=== PATIENT | male | born 1975 | race Caucasian/White ===

== ENCOUNTER 2018-09-06 21:07 | Emergency (ER) | payer OTHER ==
[~2018-09-06] VITALS: Ht 180.3 cm; Wt 72.6 kg
[2018-09-06] MEDS ORDERED: LAMICTAL (BLUE)25 MG PO (21:19)
[2018-09-06] MEDS ORDERED: NORCO 5-325 TA1 EACH PO (21:45)
[2018-09-06] MEDS ORDERED: IBUPROFEN 800800 MG PO (21:45)
[2018-09-06 22:00] VITALS: BP 115/73
== END 2018-09-06 22:00 | disposition home or self-care (01) ==
LOC: M.ERS 21:07
DX: M25.511 Pain in right shoulder (principal); Z88.0 Allergy status to penicillin; Z88.8 Allergy status to other drugs, medicaments and biological substances

== ENCOUNTER 2018-11-20 11:32 | Emergency (ER) | payer OTHER ==
[~2018-11-20] VITALS: Ht 180.3 cm; Wt 77.1 kg
[~2018-11-20 11:32] MED LIST: IBUPROFEN 800800 MG PO; LAMICTAL (BLUE)25 MG PO; NORCO 5-325 TA1 EACH PO
[2018-11-20] MEDS ORDERED: NORCO 5-325 TA1 EACH PO (12:31)
[2018-11-20] MEDS ORDERED: ONDANSETRON HCL4 M2 PO (12:31)
[2018-11-20] MEDS ORDERED: CLEOCIN HCL300 MG PO (12:31)
[2018-11-20] MEDS ORDERED: NAPROSYN500 MG PO (12:31)
[2018-11-20] MEDS ORDERED: CLEOCIN HCL150 MG PO (12:46)
[2018-11-20 12:58] VITALS: BP 121/71
== END 2018-11-20 13:00 | disposition home or self-care (01) ==
LOC: M.ERS 11:32
DX: S60.411A Abrasion of left index finger, initial encounter (principal); L08.89 Other specified local infections of the skin and subcutaneous tissue; L03.012 Cellulitis of left finger; F17.200 Nicotine dependence, unspecified, uncomplicated; Z88.8 Allergy status to other drugs, medicaments and biological substances; Z88.0 Allergy status to penicillin; Z88.6 Allergy status to analgesic agent; X58.XXXA Exposure to other specified factors, initial encounter; Y92.89 Other specified places as the place of occurrence of the external cause; Y93.89 Activity, other specified; Y99.8 Other external cause status

== ENCOUNTER 2019-01-20 18:32 | Inpatient (IN) | payer OTHER ==
[~2019-01-20] VITALS: Ht 180.3 cm; Wt 78.5 kg
[~2019-01-20 18:32] MED LIST changes: +CLEOCIN HCL150 MG PO; +CLEOCIN HCL300 MG PO; +NAPROSYN500 MG PO; +ONDANSETRON HCL4 M2 PO
[2019-01-20 18:37] VITALS: BP 121/58
[2019-01-20 19:05] LABS: ABSOLUTE BASOPHILS 0.1 thou/uL (0.0-0.2); ABSOLUTE EOSINOPHILS 0.4 thou/uL (0.0-0.7); ABSOLUTE LYMPHOCYTES 2.8 thou/uL (0.8-5.3); ABSOLUTE MONOCYTES 0.5 thou/uL (0.0-1.2); BASOPHILS 0.9 %; EOSINOPHILS 5.6 %; HEMATOCRIT 40.6 % (42.0-52.0); HEMOGLOBIN 13.7 gm/dL (14.0-18.0); LYMPHOCYTES 36.1 %; MCH 28.7 pg (26.0-34.0); MCHC 33.8 g/dL (28.0-37.0); MCV 84.9 fL (80.0-100.0); MONOCYTES 6.9 %; MPV 7.4 fl. (7.2-11.1); NUCLEATED RBCS 0 /100WBC; PLATELET COUNT* 195 thou/uL (150-400); POLYS 50.5 %; RBC 4.78 mil/uL (4.50-6.00); RDW-CV 14.8 % (10.5-14.5); WBC 7.9 thou/uL (4.0-11.0)
[2019-01-20 19:12] LABS: ANION GAP 8 mmol/L (7-16); BUN 13 mg/dL (7-18); CALCIUM 8.7 mg/dL (8.5-10.1); CHLORIDE 106 mmol/L (98-107); CO2 28 mmol/L (21-32); GLUCOSE 107 mg/dL (70-99); POTASSIUM 4.2 mmol/L (3.5-5.1); SODIUM 142 mmol/L (136-145)
[2019-01-20 19:23] LABS: ALBUMIN 3.7 g/dL (3.4-5.0); ALKALINE PHOSPHATASE 72 U/L (46-116); LIPASE 116 U/L (73-393); MAGNESIUM 2.1 mg/dL (1.8-2.4); NT-PRO BRAIN NAT PEPTIDE 18 pg/mL (<300); SGOT 17 U/L (15-37); SGPT 24 U/L (30-65); TOTAL BILIRUBIN 0.5 mg/dL (<0.1-1.0); TOTAL PROTEIN 6.9 g/dL (6.4-8.2); TROPONIN-I LEVEL <0.06 ng/mL (<0.06)
[2019-01-20 21:00] VITALS: BP 120/78
[2019-01-20 21:27] VITALS: BP 108/64
[2019-01-20] MEDS ORDERED: TRAMADOL 50 MG50 MG PO (21:48)
[2019-01-21 04:00] VITALS: BP 95/56
--- NOTE | 2019-01-21 06:50 | NUR ---
Pt admitted from ED for c/o chest pain. Topical NTG placed to chest in ED just prior to arrival to floor. Reports chest pressure easing from 6 in ED to 3 upon arrival. Later pt reports pain is "gone." Instructed to call if chest pain returns. States he slept on and off overnight. States he is hopeful that physicians will round early to determine course of action. NPO since MN. VSS. Will continue to monitor.
[2019-01-21 08:03] VITALS: BP 93/63
--- NOTE | 2019-01-21 09:58 | NUR ---
vss, assumed care in the am, ASSESSMENT PERFORMED AND CHARTED, FALL PRECAUTIONS IN PLACE AND CALL LIGHT IN REACH, PT IS A&O4 ON RA AND IS TRACING SR ON THE MONITOR, PT DENIES ANY PAIN AND HE WANTS TO DISCHARGE HOME, AT THIS TIME PT HAS REQUETED TO HAVE IV AND TELE MONITOR REMOVED AND HE WANTS TO GO HOME AMA, I PROVITED EDU ABOUT THE IMPORTANCE OF WAITING FOR DOCTOR OK TO LEAVE BUT PT WAS NOT WILLING TO WAIT, I CALL DR BENSON TO INFORM HIM. AMA PAPERS SINGED
--- NOTE | 2019-01-23 12:17 | EKG ---
[place] [address] ELECTROCARDIOGRAM REPORT Name: KRISTIE PANTOJA Room: [address] R.#: [id number] Admission: 01/20/19 Attend Phys: Hemant Mustafa Discharge: 01/21/19 Date of : 77 Report #: [id number] THIS REPORT FOR: //name// [facility] ED Test Date: 2019-01-20 Test Time: 18:44:13 Pat Name: KRISTIE PANTOJA Department: Room: [facility] Gender: M Manager Of Patient: : 1975 Requested By: Panda Gar Order Number: [id number] MD: Coy Hooper Measurements Intervals [place] Rate: 82 P: 73 FL: 190 QRS: 85 QRSD: 105 T: 50 QT: 359 QTc: 420 Interpretive Statements Sinus rhythm Probable left atrial enlargement RSR' in V1 or V2, right VCD or RVH ST elev, probable normal early repol pattern No previous ECG available for comparison Electronically Signed On 01-23-2019 12:16:59 CDT by Coy Hooper [email or web address] <ELECTRONICALLY SIGNED> By: Coy Hooper MD, FACC 01/23/19 1216 1844 1844 Coy Hooper MD, [facility] /EPI
== END 2019-01-21 10:00 | disposition left against medical advice (07) | DRG 311 ==
LOC: M.ERS 18:32 → M.2W 20:42 → M.TBA-ER 20:42 → M.2W 21:32
PROVIDERS: Emergency Medicine Emergency Medical Services; ADMIT Internal Medicine
DX: I20.0 Unstable angina (principal); I47.1 Supraventricular tachycardia; F17.200 Nicotine dependence, unspecified, uncomplicated; Z82.49 Family history of ischemic heart disease and other diseases of the circulatory system; I25.2 Old myocardial infarction; Z79.2 Long term (current) use of antibiotics; Z79.1 Long term (current) use of non-steroidal anti-inflammatories (NSAID); Z88.8 Allergy status to other drugs, medicaments and biological substances; Z88.0 Allergy status to penicillin

== ENCOUNTER 2019-02-02 08:37 | Emergency (ER) | payer OTHER ==
[~2019-02-02] VITALS: Ht 180.3 cm; Wt 78.0 kg
[~2019-02-02 08:37] MED LIST changes: +TRAMADOL 50 MG50 MG PO
[2019-02-02 09:48] LABS: ABSOLUTE BASOPHILS 0.1 thou/uL (0.0-0.2); ABSOLUTE LYMPHOCYTES 0.9 thou/uL (0.8-5.3); ABSOLUTE MONOCYTES 0.4 thou/uL (0.0-1.2); ABSOLUTE NEUTROPHILS 5.4 thou/uL (1.6-8.1); BASOPHILS 0.9 %; EOSINOPHILS 0.6 %; HEMATOCRIT 40.5 % (42.0-52.0); HEMOGLOBIN 13.9 gm/dL (14.0-18.0); LYMPHOCYTES 13.5 %; MCH 28.9 pg (26.0-34.0); MCHC 34.2 g/dL (28.0-37.0); MCV 84.4 fL (80.0-100.0); MONOCYTES 5.3 %; MPV 7.5 fl. (7.2-11.1); NUCLEATED RBCS 0 /100WBC; PLATELET COUNT* 170 thou/uL (150-400); POLYS 79.7 %; RBC 4.79 mil/uL (4.50-6.00); RDW-CV 14.8 % (10.5-14.5); WBC 6.8 thou/uL (4.0-11.0)
[2019-02-02 09:52] LABS: CALCIUM 8.4 mg/dL (8.5-10.1); CREATININE 0.8 mg/dL (0.6-1.3); POTASSIUM 4.2 mmol/L (3.5-5.1)
[2019-02-02 09:56] LABS: ALBUMIN 3.6 g/dL (3.4-5.0); TOTAL BILIRUBIN 0.6 mg/dL (<0.1-1.0)
[2019-02-02 10:00] LABS: PO2 97.6 mmHg (75.0-100.0); pH 7.465 (7.340-7.450)
[2019-02-02 11:14] LABS: URINE BILIRUBIN NEGATIVE (Negative); URINE BLOOD 1+ (Negative); URINE CLARITY CLEAR; URINE COLOR YELLOW; URINE GLUCOSE-RANDOM NEGATIVE (Negative); URINE KETONES TRACE (Negative); URINE LEUKOCYTES-REFLEX NEGATIVE (Negative); URINE NITRITE-REFLEX NEGATIVE (Negative); URINE PROTEIN NEGATIVE (Negative); URINE SPECIFIC GRAVITY 1.015 (1.005-1.030)
[2019-02-02 12:01] VITALS: BP 102/62
[2019-02-02 12:53] LABS: BACTERIA-REFLEX 1-9 Few /HPF (None Seen); CASTS None Seen /LPF (None Seen); CRYSTALS None Seen /LPF (None Seen); MUCUS 0-3 Light strn/LPF (None Seen); SQUAMOUS 0-3 Few /LPF (0-3); URINE RBC 3-10 Few /HPF (0-2); URINE WBC-REFLEX 0-5 Rare /HPF (0-5)
[2019-02-03] MEDS ORDERED: NORCO 5-325 TA1 EAC1 PO (07:08)
[2019-02-03] MEDS ORDERED: ZOFRAN ODT4 MG DISSOLVE (07:08)
== END 2019-02-02 12:01 | disposition home or self-care (01) ==
LOC: M.ERS 08:37
PROVIDERS: Personal Emergency Response Attendant
DX: E86.0 Dehydration (principal); B34.9 Viral infection, unspecified; Z88.0 Allergy status to penicillin; Z88.8 Allergy status to other drugs, medicaments and biological substances

== ENCOUNTER 2019-02-03 04:32 | Emergency (ER) | payer OTHER ==
[~2019-02-03] VITALS: Ht 180.3 cm; Wt 78.0 kg
[2019-02-03 04:59] LABS: ABSOLUTE NEUTROPHILS 5.5 thou/uL (1.6-8.1); EOSINOPHILS 0.5 %; NUCLEATED RBCS 0 /100WBC
[2019-02-03 05:04] LABS: ABSOLUTE MONOCYTES 0.5 thou/uL (0.0-1.2); BASOPHILS 0.6 %; HEMATOCRIT 40.7 % (42.0-52.0); HEMOGLOBIN 13.8 gm/dL (14.0-18.0); LYMPHOCYTES 14.1 %; MCH 28.6 pg (26.0-34.0); MCHC 33.9 g/dL (28.0-37.0); MCV 84.5 fL (80.0-100.0); MONOCYTES 6.8 %; MPV 7.3 fl. (7.2-11.1); PLATELET COUNT* 155 thou/uL (150-400); RBC 4.82 mil/uL (4.50-6.00); RDW-CV 15.1 % (10.5-14.5); WBC 7.1 thou/uL (4.0-11.0)
[2019-02-03 05:07] LABS: CALCIUM 8.4 mg/dL (8.5-10.1); CREATININE 0.8 mg/dL (0.6-1.3); POTASSIUM 3.8 mmol/L (3.5-5.1)
[2019-02-03 05:11] LABS: ALBUMIN 3.4 g/dL (3.4-5.0); TOTAL BILIRUBIN 0.6 mg/dL (<0.1-1.0)
[2019-02-03 05:14] LABS: URINE BLOOD 2+ (Negative); URINE CLARITY CLEAR; URINE COLOR YELLOW; URINE GLUCOSE-RANDOM NEGATIVE (Negative); URINE KETONES 1+ (Negative); URINE LEUKOCYTES-REFLEX NEGATIVE (Negative); URINE NITRITE-REFLEX NEGATIVE (Negative); URINE PROTEIN TRACE (Negative); URINE SPECIFIC GRAVITY >= 1.030 (1.005-1.030); URINE UROBILINOGEN 0.2 E.U./dl (0.2-1.0)
[2019-02-03 05:16] LABS: URINE BILIRUBIN 1+ (Negative)
[2019-02-03 05:17] LABS: ICTOTEST (BILI CONFIRMATORY) Negative (Negative)
[2019-02-03 05:22] LABS: CASTS None Seen /LPF (None Seen); SQUAMOUS 0-3 Few /LPF (0-3); URINE WBC-REFLEX 0-5 Rare /HPF (0-5)
[2019-02-03 05:23] LABS: CRYSTALS None Seen /LPF (None Seen); MUCUS 0-3 Light strn/LPF (None Seen)
[2019-02-03] MEDS ORDERED: ZOFRAN ODT4 MG DISSOLVE (07:08)
[2019-02-03] MEDS ORDERED: NORCO 5-325 TA1 EAC1 PO (07:08)
[2019-02-03 07:30] VITALS: BP 102/66
== END 2019-02-03 07:30 | disposition home or self-care (01) ==
LOC: M.ERS 04:32
PROVIDERS: Emergency Medicine Emergency Medical Services
DX: K52.9 Noninfective gastroenteritis and colitis, unspecified (principal); Z88.0 Allergy status to penicillin; Z88.8 Allergy status to other drugs, medicaments and biological substances

== ENCOUNTER 2019-05-10 11:14 | Emergency (ER) | payer OTHER ==
[~2019-05-10] VITALS: Ht 180.3 cm; Wt 77.1 kg
[~2019-05-10 11:14] MED LIST changes: +NORCO 5-325 TA1 EAC1 PO; +ZOFRAN ODT4 MG DISSOLVE
[2019-05-10 11:20] VITALS: BP 99/73
[2019-05-10] MEDS ORDERED: TYLENOL WITH CO1 TA1 PO (11:45)
== END 2019-05-10 12:11 | disposition home or self-care (01) ==
LOC: M.ERS 11:14
DX: S46.001A Unspecified injury of muscle(s) and tendon(s) of the rotator cuff of right shoulder, initial encounter (principal); Z88.0 Allergy status to penicillin; Z88.8 Allergy status to other drugs, medicaments and biological substances; X50.9XXA Other and unspecified overexertion or strenuous movements or postures, initial encounter; Y93.89 Activity, other specified; Y92.89 Other specified places as the place of occurrence of the external cause; Y99.8 Other external cause status

== ENCOUNTER 2019-05-29 18:58 | Emergency (ER) | payer OTHER ==
[~2019-05-29] VITALS: Ht 180.3 cm; Wt 77.1 kg
[~2019-05-29 18:58] MED LIST changes: +TYLENOL WITH CO1 TA1 PO
[2019-05-29] MEDS ORDERED: CIPROFLOXIN HC2.5 M1 OPHTHALMIC (19:33)
[2019-05-29 19:40] VITALS: BP 108/69
== END 2019-05-29 19:40 | disposition home or self-care (01) ==
LOC: M.ERS 18:58
DX: S05.01XA Injury of conjunctiva and corneal abrasion without foreign body, right eye, initial encounter (principal); F17.210 Nicotine dependence, cigarettes, uncomplicated; Z88.0 Allergy status to penicillin; Z88.8 Allergy status to other drugs, medicaments and biological substances; X58.XXXA Exposure to other specified factors, initial encounter; Y93.89 Activity, other specified; Y92.89 Other specified places as the place of occurrence of the external cause; Y99.8 Other external cause status

== ENCOUNTER 2019-06-13 22:47 | Emergency (ER) | payer OTHER ==
[~2019-06-13] VITALS: Ht 180.3 cm; Wt 78.0 kg
[~2019-06-13 22:47] MED LIST changes: +CIPROFLOXIN HC2.5 M1 OPHTHALMIC
[2019-06-13] MEDS ORDERED: BACTRIM DS TAB1 EACH PO (23:13)
[2019-06-13] MEDS ORDERED: IBUPROFEN 800800 MG PO ×2 (23:13→23:23)
[2019-06-13 23:32] VITALS: BP 120/74
== END 2019-06-13 23:33 | disposition home or self-care (01) ==
LOC: M.ERS 22:47
DX: H66.91 Otitis media, unspecified, right ear (principal); J32.9 Chronic sinusitis, unspecified; F17.210 Nicotine dependence, cigarettes, uncomplicated; Z88.0 Allergy status to penicillin; Z88.8 Allergy status to other drugs, medicaments and biological substances

== ENCOUNTER 2019-06-23 20:08 | Emergency (ER) | payer OTHER ==
[~2019-06-23] VITALS: Ht 180.3 cm; Wt 78.0 kg
[~2019-06-23 20:08] MED LIST changes: +BACTRIM DS TAB1 EACH PO
[2019-06-23] MEDS ORDERED: DOXYCYCLINE 10100 MG PO ×2 (20:53→20:54)
[2019-06-23] MEDS ORDERED: IBUPROFEN 800800 M1 PO ×2 (20:53→20:54)
[2019-06-23] MEDS ORDERED: TYLENOL WITH CO1 TA1 PO (20:53)
[2019-06-23 21:00] VITALS: BP 132/74
== END 2019-06-23 21:00 | disposition home or self-care (01) ==
LOC: M.ERS 20:08
DX: J32.1 Chronic frontal sinusitis (principal); I25.2 Old myocardial infarction; F17.200 Nicotine dependence, unspecified, uncomplicated; Z98.890 Other specified postprocedural states; Z88.0 Allergy status to penicillin; Z88.8 Allergy status to other drugs, medicaments and biological substances

== ENCOUNTER 2019-08-12 15:30 | Emergency (ER) | payer OTHER ==
[~2019-08-12] VITALS: Ht 180.3 cm; Wt 74.8 kg
[~2019-08-12 15:30] MED LIST changes: +DOXYCYCLINE 10100 MG PO; +IBUPROFEN 800800 M1 PO
[2019-08-12] MEDS ORDERED: NORFLEX100 MG PO (15:57)
[2019-08-12] MEDS ORDERED: MELOXICAM15 MG PO (15:57)
[2019-08-12 16:22] VITALS: BP 118/74
== END 2019-08-12 16:22 | disposition home or self-care (01) ==
LOC: M.ERS 15:30
DX: M54.31 Sciatica, right side (principal); M46.1 Sacroiliitis, not elsewhere classified; Z88.0 Allergy status to penicillin; Z88.8 Allergy status to other drugs, medicaments and biological substances; Z87.442 Personal history of urinary calculi

== ENCOUNTER 2019-09-16 14:21 | Emergency (ER) | payer OTHER ==
[~2019-09-16] VITALS: Ht 180.3 cm; Wt 74.8 kg
[~2019-09-16 14:21] MED LIST changes: +CLINDAGEL75 ML TOP; +MELOXICAM15 MG PO; +NORFLEX100 MG PO
[2019-09-16] MEDS ORDERED: ZOFRAN4 MG PO ×2 (15:04→15:08)
[2019-09-16] MEDS ORDERED: TYLENOL WITH CO1 TA1 PO (15:04)
[2019-09-16] MEDS ORDERED: PERIDEX15 ML SWISH&SPIT (15:04)
[2019-09-16 15:22] VITALS: BP 125/70
== END 2019-09-16 15:23 | disposition home or self-care (01) ==
LOC: M.ERS 14:21
DX: K02.9 Dental caries, unspecified (principal); Z88.0 Allergy status to penicillin; Z88.8 Allergy status to other drugs, medicaments and biological substances; Z87.442 Personal history of urinary calculi

== ENCOUNTER 2019-09-18 02:52 | Emergency (ER) | payer OTHER ==
[~2019-09-18] VITALS: Ht 180.3 cm; Wt 74.8 kg
[~2019-09-18 02:52] MED LIST changes: +PERIDEX15 ML SWISH&SPIT; +ZOFRAN4 MG PO
[2019-09-18 03:34] LABS: INFLUENZA A ANTIGEN Negative (Negative); INFLUENZA B ANTIGEN Negative (Negative)
[2019-09-18] MEDS ORDERED: TRAMADOL 50 MG50 MG PO (03:52)
[2019-09-18 04:06] VITALS: BP 110/72
[2019-09-19] MEDS ORDERED: PREDNISONE 20 M20 M1 PO (18:10)
[2019-09-19] MEDS ORDERED: XOPENEX HFA15 GM INH (18:10)
[2019-09-19] MEDS ORDERED: ZPAK PO (18:10)
== END 2019-09-18 04:06 | disposition home or self-care (01) ==
LOC: M.ERS 02:52
PROVIDERS: Emergency Medicine
DX: J06.9 Acute upper respiratory infection, unspecified (principal); Z87.442 Personal history of urinary calculi; Z88.0 Allergy status to penicillin; Z88.8 Allergy status to other drugs, medicaments and biological substances

== ENCOUNTER 2019-09-19 17:20 | Emergency (ER) | payer OTHER ==
[~2019-09-19] VITALS: Ht 180.3 cm; Wt 72.6 kg
[2019-09-19 17:52] LABS: INFLUENZA A ANTIGEN Positive (Negative); INFLUENZA B ANTIGEN Negative (Negative)
[2019-09-19] MEDS ORDERED: ZPAK PO (18:10)
[2019-09-19] MEDS ORDERED: PREDNISONE 20 M20 M1 PO (18:10)
[2019-09-19] MEDS ORDERED: XOPENEX HFA15 GM INH (18:10)
[2019-09-19 18:34] VITALS: BP 110/71
== END 2019-09-19 18:35 | disposition home or self-care (01) ==
LOC: M.ERS 17:20
PROVIDERS: Family Medicine
DX: J10.1 Influenza due to other identified influenza virus with other respiratory manifestations (principal); F17.210 Nicotine dependence, cigarettes, uncomplicated; Z88.0 Allergy status to penicillin; Z88.8 Allergy status to other drugs, medicaments and biological substances; Z87.442 Personal history of urinary calculi

== ENCOUNTER 2019-09-23 04:56 | Emergency (ER) | payer OTHER ==
[~2019-09-23] VITALS: Ht 180.3 cm; Wt 74.8 kg
[~2019-09-23 04:56] MED LIST changes: +PREDNISONE 20 M20 M1 PO; +XOPENEX HFA15 GM INH; +ZPAK PO
[2019-09-23 05:32] LABS: ABSOLUTE LYMPHOCYTES 3.1 thou/uL (0.8-5.3); ABSOLUTE MONOCYTES 0.7 thou/uL (0.0-1.2); BASOPHILS 0.3 %; EOSINOPHILS 0.6 %; HEMATOCRIT 40.9 % (42.0-52.0); HEMOGLOBIN 14.1 gm/dL (14.0-18.0); MCHC 34.4 g/dL (28.0-37.0); MCV 84.2 fL (80.0-100.0); MONOCYTES 12.7 %; MPV 7.2 fl. (7.2-11.1); NUCLEATED RBCS 0 /100WBC; PLATELET COUNT* 175 thou/uL (150-400); POLYS 33.4 %; RBC 4.85 mil/uL (4.50-6.00); RDW-CV 14.5 % (10.5-14.5); WBC 5.9 thou/uL (4.0-11.0)
[2019-09-23 05:55] LABS: CALCIUM 8.6 mg/dL (8.5-10.1); CREATININE 0.8 mg/dL (0.6-1.3)
[2019-09-23 06:00] LABS: ALBUMIN 3.7 g/dL (3.4-5.0); TOTAL BILIRUBIN 0.3 mg/dL (<0.1-1.0)
[2019-09-23] MEDS ORDERED: HYDROCODON-ACE1 EAC7 PO (06:30)
[2019-09-23] MEDS ORDERED: IBUPROFEN 800800 MG PO (06:30)
[2019-09-23 06:46] VITALS: BP 97/54
--- NOTE | 2019-09-25 11:40 | EKG ---
[place] [address] ELECTROCARDIOGRAM REPORT Name: KRISTIE PANTOJA Room: [facility]#: [id number] Admission: 09/23/19 Attend Phys: Discharge: 09/23/19 Date of : 77 Date of Service: 09/23/19 0459 Report #: [id number] THIS REPORT FOR: //name// [facility] [place] ED Test Date: 2019-09-23 Test Time: 04:59:22 Pat Name: KRISTIE PANTOJA Department: Room: Gender: Product Assembler: : 1975 Requested By: Joslyn Barker Order Number: [id number] MD: Jean Morfin Measurements Intervals [place] Rate: 60 P: 77 [place]: 191 QRS: 72 QRSD: 114 T: 48 QT: 394 QTc: 394 Interpretive Statements Sinus rhythm Incomplete right bundle branch block ST elev, probable normal early repol pattern Baseline wander in lead(s) II,III,aVF Compared to ECG 01/20/2019 18:44:13 ST (T wave) deviation still present Electronically Signed On 09-25-2019 11:39:31 CDT by Jean Morfin [email or web address] <ELECTRONICALLY SIGNED> By: Jean Morfin MD, [facility] 09/25/19 1139 0459 0459 Jean Morfin MD, [facility] /EPI
== END 2019-09-23 06:46 | disposition home or self-care (01) ==
LOC: M.ERS 04:56
PROVIDERS: Personal Emergency Response Attendant
DX: J11.1 Influenza due to unidentified influenza virus with other respiratory manifestations (principal); R06.2 Wheezing; I25.2 Old myocardial infarction; Z88.8 Allergy status to other drugs, medicaments and biological substances; Z88.0 Allergy status to penicillin; Z87.442 Personal history of urinary calculi; Z79.899 Other long term (current) drug therapy

== ENCOUNTER 2019-11-22 19:40 | Emergency (ER) | payer OTHER ==
[~2019-11-22] VITALS: Ht 180.3 cm; Wt 74.8 kg
[~2019-11-22 19:40] MED LIST changes: +HYDROCODON-ACE1 EAC7 PO
[2019-11-22] MEDS ORDERED: DIAZEPAM 5 MG5 M1 PO (20:34)
[2019-11-22] MEDS ORDERED: MOBIC15 MG PO (20:34)
[2019-11-22] MEDS ORDERED: ACETAMINOPHEN-1 EAC2 PO (20:34)
[2019-11-22 20:51] VITALS: BP 118/83
== END 2019-11-22 20:51 | disposition home or self-care (01) ==
LOC: M.ERS 19:40
DX: S16.1XXA Strain of muscle, fascia and tendon at neck level, initial encounter (principal); F17.210 Nicotine dependence, cigarettes, uncomplicated; Z87.442 Personal history of urinary calculi; Z88.0 Allergy status to penicillin; Z88.8 Allergy status to other drugs, medicaments and biological substances; X50.0XXA Overexertion from strenuous movement or load, initial encounter; Y93.89 Activity, other specified; Y92.89 Other specified places as the place of occurrence of the external cause; Y99.0 Civilian activity done for income or pay

== ENCOUNTER 2019-11-30 19:49 | Emergency (ER) | payer OTHER ==
[~2019-11-30] VITALS: Ht 180.3 cm; Wt 74.8 kg
[~2019-11-30 19:49] MED LIST changes: +ACETAMINOPHEN-1 EAC2 PO; +DIAZEPAM 5 MG5 M1 PO; +MOBIC15 MG PO
[2019-11-30] MEDS ORDERED: NORCO 5-325 TA1 EAC1 PO (20:54)
[2019-11-30] MEDS ORDERED: ZOFRAN ODT4 MG DISSOLVE (20:54)
[2019-11-30] MEDS ORDERED: FLEXERIL PO (20:54)
[2019-11-30 21:40] VITALS: BP 107/86
== END 2019-11-30 21:40 | disposition home or self-care (01) ==
LOC: M.ERS 19:49
DX: S16.1XXA Strain of muscle, fascia and tendon at neck level, initial encounter (principal); Z88.0 Allergy status to penicillin; Z88.8 Allergy status to other drugs, medicaments and biological substances; Z87.891 Personal history of nicotine dependence; Z87.442 Personal history of urinary calculi; X58.XXXA Exposure to other specified factors, initial encounter; Y93.89 Activity, other specified; Y92.89 Other specified places as the place of occurrence of the external cause; Y99.8 Other external cause status